=== PATIENT | male | born 1960 | race Caucasian/White ===

== ENCOUNTER 2022-04-25 13:26 | Emergency (ER) | payer SELFPAY ==
[2022-04-25] MEDS ORDERED: methylPREDNISolone Sodium Succinate 125 MG/2 ML SDV IM ONE (14:09)
[2022-04-25] MEDS ORDERED: HYDROmorphone 1 MG/ML Syringe IM ONE (14:09)
== END 2022-04-25 15:25 | disposition home or self-care (01) ==
LOC: MW.ED 13:26
DX: M54.50 Low back pain, unspecified (principal); I10 Essential (primary) hypertension; F17.210 Nicotine dependence, cigarettes, uncomplicated
CPT/HCPCS: 93005; 96372; 99283; J1170; J2930

== ENCOUNTER 2022-05-02 05:18 | Emergency (ER) | payer SELFPAY ==
[2022-05-02] MEDS ORDERED: Diazepam 5 MG Tab PO ONE (06:28)
[2022-05-02] MEDS ORDERED: HYDROmorphone 2 MG/ML Syringe IM ONE (06:28)
[2022-05-02] MEDS ORDERED: Dexamethasone 10 MG/ML SDV IM ONE (06:29)
== END 2022-05-02 07:02 | disposition home or self-care (01) ==
LOC: MW.ED 05:18
DX: M62.830 Muscle spasm of back (principal); I10 Essential (primary) hypertension; Z79.899 Other long term (current) drug therapy; Z90.49 Acquired absence of other specified parts of digestive tract
CPT/HCPCS: 96372; 99283; A9270; J1100; J1170